=== PATIENT | male | born 1945 | race Hispanic/Latino ===

== ENCOUNTER 2018-10-23 15:28 | Outpatient (CLI) | payer MEDICARE ==
--- NOTE | 2018-10-23 15:56 | RAD ---
XR Shoulder Lt 3 View STANDARD History: [Injury. Limited range of motion.] Comparison: None. Findings: There is increased ossification along the expected location of the deltoid tuberosity. No a cute fracture or malalignment. Mild degenerative disease acromioclavicular joint. Impression: Chronic findings. No acute abnormality.
== END 2018-10-23 15:29 | disposition home or self-care (01) ==
LOC: SCSRAD 15:28
PROVIDERS: ATTEND Family Medicine
DX: M25.512 Pain in left shoulder (principal)